=== PATIENT | male | born 1980 | race Two or more races ===

== ENCOUNTER 2024-01-31 17:36 | Emergency (ER) | payer OTHER ==
[~2024-01-31] VITALS: Ht 167.6 cm; Wt 93.0 kg
[2024-01-31] MEDS ORDERED: MOUNJARO2.5 MG/0.5 SQ (18:45)
[2024-01-31] MEDS ORDERED: FAMOTIDINE/PF 20 MG/2 ML VIAL IV PUSH STA (19:32)
[2024-01-31] MEDS ORDERED: LISINOPRIL 5 MG TABLET PO STA (19:33)
[2024-01-31 20:05] LABS: HEMOGLOBIN 13.8 g/dL (13-16.00); MEAN CELL VOLUME 91.7 fL (80.0-100.00); MEAN CORPUSCULAR HEMOGLOBIN 30.9 pg (27.00-32.0); MEAN CORPUSCULAR HGB CONC 33.7 g/dl (32.0-36.0); PLATELET COUNT 235 K/uL (150-450); RED BLOOD COUNT 4.47 M/uL (4.00-6.00); RED CELL DISTRIBUTION WIDTH 14.1 % (11.5-14.5)
[2024-01-31 20:27] LABS: CALCIUM 9.7 mg/dL (8.5-10.1); CREATININE SERUM 0.81 mg/dL (0.70-1.30); GFR 104.5; POTASSIUM 3.87 mEq/L (3.5-5.1)
== END 2024-01-31 21:09 | disposition home or self-care (01) ==
LOC: ER 17:36
PROVIDERS: General Practice
DX: I10 Essential (primary) hypertension (principal); Z20.822 Contact with and (suspected) exposure to COVID-19; Z88.0 Allergy status to penicillin